=== PATIENT | female | born 1950 | race African-American/Black ===

== ENCOUNTER → 2017-01-09 | Outpatient (CLI) | payer OTHER | LOC: RAD 10:15 | DX: D47.2 Monoclonal gammopathy (principal) ==

== ENCOUNTER → 2017-11-12 | Outpatient (CLI) | payer OTHER | LOC: NUC 11:42 → RAD 11:42 | DX: C90.00 Multiple myeloma not having achieved remission (principal); M41.85 Other forms of scoliosis, thoracolumbar region; M85.89 Other specified disorders of bone density and structure, multiple sites; M17.0 Bilateral primary osteoarthritis of knee ==

== ENCOUNTER → 2020-04-12 | Outpatient (CLI) | payer OTHER | LOC: RAD 16:25 | PROVIDERS: ATTEND Internal Medicine Hematology & Oncology | DX: C90.00 Multiple myeloma not having achieved remission (principal); M17.0 Bilateral primary osteoarthritis of knee; M43.16 Spondylolisthesis, lumbar region ==

== ENCOUNTER → 2020-05-01 | Outpatient (CLI) | payer OTHER | LOC: MRI 11:24 | PROVIDERS: ATTEND Internal Medicine Hematology & Oncology | DX: M16.0 Bilateral primary osteoarthritis of hip (principal); C90.00 Multiple myeloma not having achieved remission; M41.84 Other forms of scoliosis, thoracic region; M41.86 Other forms of scoliosis, lumbar region; M48.061 Spinal stenosis, lumbar region without neurogenic claudication ==